=== PATIENT | female | born 1985 | race African-American/Black ===

== ENCOUNTER 2019-01-28 21:39 | Emergency (ER) | payer OTHER | END 2019-01-28 21:46 | disposition left against medical advice (07) | LOC: ER 21:39 | DX: T14.8XXA Other injury of unspecified body region, initial encounter (principal); Z53.21 Procedure and treatment not carried out due to patient leaving prior to being seen by health care provider; W57.XXXA Bitten or stung by nonvenomous insect and other nonvenomous arthropods, initial encounter; Y93.89 Activity, other specified; Y92.89 Other specified places as the place of occurrence of the external cause; Y99.8 Other external cause status ==

== ENCOUNTER 2020-08-10 20:10 | Emergency (ER) | payer OTHER ==
[~2020-08-10] VITALS: Ht 160 cm; Wt 109.0 kg
[2020-08-10 20:10] VITALS: BP 141/90
[2020-08-10] MEDS ORDERED: diphenhydrAMINE HCL 25 MG CAPSULE PO ONE (21:00)
[2020-08-10] MEDS ORDERED: CEPHALEXIN 250 MG CAPSULE PO ONE (21:00)
[2020-08-10] MEDS ORDERED: CEPH500T PO (21:04)
--- NOTE | 2020-08-10 21:05 | PHYS DOC ---
General Adult EDM: Chief Complaint: INSECT BITE HPI: HPI: 35-year-old female presents with rash. Patient has what she thinks is an insect bite in the right bicep. She thinks it happened yesterday evening or overnight. She noticed throughout the day that is now erythematous and warm to the touch and about a 4 cm [id number]. Just prior to arrival in the emergency room she also noticed that she has redness on the right side of her abdomen. She has no idea why this is occurring. The patient does have a metal allergy but has not come in contact with metal today. She denies shortness of breath, fever, chills. The bicep is mildly pruritic. No significant history of skin infections. She has no other complaints at this time. Review of Systems: Review of Systems: Constitutional: Denies fever or chills Eyes: Denies change in visual acuity HENT: Denies nasal congestion or sore throat Respiratory: Denies cough or shortness of breath Cardiovascular: Denies chest pain or edema GI: Denies abdominal pain, nausea, vomiting, bloody stools or diarrhea : Denies dysuria Musculoskeletal: Denies back pain or joint pain Integument: Rash Neurologic: Denies headache, focal weakness or sensory changes Endocrine: Denies polyuria or polydipsia Lymphatic: Denies swollen glands Psychiatric: Denies depression or anxiety Allergies: Allergies: Allergies Coded Allergies Type Severity Reaction Last Updated Verified No Known Drug Allergies 08/10/20 No Physical Exam: PE: Constitutional: Well developed, well nourished, no acute distress, non-toxic appearance. [] HENT: Normocephalic, atraumatic, bilateral external ears normal, oropharynx moist, no oral exudates, nose normal. [] Eyes: PERRLA, EOMI, conjunctiva normal, no discharge. [] Neck: Normal range of motion, no tenderness, supple, no stridor. [] Cardiovascular:Heart rate regular rhythm, no murmur [] Lungs & Thorax: Bilateral breath sounds clear to auscultation [] Abdomen: Bowel sounds normal, soft, no tenderness, no masses, no pulsatile masses. [] Skin: 4 cm erythematous warm area on the right bicep with a central pit that appears consistent with insect bite. Erythematous abdominal scan right of midline extending through the flank. [] Back: No tenderness, no CVA tenderness. [] Extremities: No tenderness, no cyanosis, no clubbing, ROM intact, no edema. [] Neurologic: Alert and oriented X 3, normal motor function, normal sensory function, no focal deficits noted. [] Psychologic: Affect normal, judgement normal, mood normal. [] EKG: EKG: [] Radiology/Procedures: Radiology/Procedures: [] Heart Score: C/O Chest Pain: N/A Risk Factors: Risk Factors: DM, Current or recent (<one month) smoker, HTN, HLP, family history of CAD, obesity. Risk Scores: Score 0 - 3: 2.5% MACE over next 6 weeks - Discharge Home Score 4 - 6: 20.3% MACE over next 6 weeks - Admit for Clinical Observation Score 7 - 10: 72.7% MACE over next 6 weeks - Early Invasive Strategies Course & Med Decision Making: Course & Med Decision Making Pertinent Labs and Imaging studies reviewed. (See chart for details) The patient appears to have cellulitis of the bicep. I am unsure why she has erythematous skin on her abdomen. She insists that she has had no metal exposure or any new clothing or detergents. It could be a mild systemic reaction to the insect bite. I will treated with Benadryl and Keflex in the ED. the patient's erythema on the abdomen has improved somewhat. I have advised that she can continue Benadryl as needed at home. I will discharge her with a prescription for Keflex. She is stable for discharge at this time. [] Olena Disclaimer: Olena Disclaimer: This electronic medical record was generated, in whole or in part, using a voice recognition dictation system. Departure Departure: Impression: Primary Impression: Cellulitis of right upper arm Additional Impression: Rash Disposition: HOME / SELF CARE / HOMELESS Condition: STABLE Referrals: PCP,NO (PCP) Patient Instructions: Cellulitis, [id number] Scripts Cephalexin (CEPHALEXIN) 500 Mg Tablet 1 TAB PO TID for cellulitis for 7 Days, #21 TAB Prov: NADYA SALAS DO 08/10/20 NADYA SALAS DO Aug 10, 2020 21:05
== END 2020-08-10 21:45 | disposition home or self-care (01) ==
LOC: ER 20:10
DX: S40.861A Insect bite (nonvenomous) of right upper arm, initial encounter (principal); L03.113 Cellulitis of right upper limb; W57.XXXA Bitten or stung by nonvenomous insect and other nonvenomous arthropods, initial encounter; Y93.89 Activity, other specified; Y92.89 Other specified places as the place of occurrence of the external cause; Y99.8 Other external cause status
CPT/HCPCS: 99283; Q0163